=== PATIENT | female | born 1995 | race Two or more races ===

== ENCOUNTER 2019-07-07 16:43 | Emergency (ER) | payer OTHER ==
[~2019-07-07] VITALS: Ht 157.5 cm; Wt 65.1 kg
[2019-07-07 16:46] VITALS: BP 123/82
--- NOTE | 2019-07-07 17:11 | NUR ---
PT HERE WITH C/O "ABDOMINAL CRAMPS" PT STATES THIS STARTED THIS AM. PT DENIES N/V/D. PT STATES CRAMPS ARE ALL OVER THE PLACE. PT DENIES URINARY SYMPTOMS. PT AMBULATED TO BR WITH STEADY GAIT. UA COLLECTED AND SENT TO LAB
[2019-07-07] MEDS ORDERED: DICYCLOMINE 10 MG/ML, 2ML ONE (17:41)
[2019-07-07] MEDS ORDERED: DICYCLOMINE 10 MG/ML, 2ML IM ONE ×2 (18:00→18:30)
[2019-07-07] MEDS ORDERED: PLEASE ENTER ALLERGIES MC SCH (18:00)
[2019-07-07 18:06] LABS: CHLORIDE 107 mmol/L (98-107)
[2019-07-07 18:20] LABS: ALANINE AMINOTRANSFERASE 27 U/L (12-78); ALBUMIN 3.8 g/dL (3.4-5.0); ALKALINE PHOSPHATASE 43 U/L (45-117); ANION GAP 4 mmol/L (5-15); BILIRUBIN,TOTAL 0.3 mg/dL (0.2-1.0); CALCIUM 8.3 mg/dL (8.5-10.1); CREATININE 0.89 mg/dL (0.55-1.02)
--- NOTE | 2019-07-07 18:50 | NUR ---
REPORT RECEIVED FORM STUART REYES. PLAN OF CARE DISCUSSED.
--- NOTE | 2019-07-07 19:33 | NUR ---
Patient/Caregiver given discharge instructions and they have confirmed that they understand the instructions. Patient ambulatory with steady gait.
== END 2019-07-07 19:42 | disposition home or self-care (01) ==
LOC: ED 19:00
DX: R10.84 Generalized abdominal pain (principal); M79.10 Myalgia, unspecified site; R19.7 Diarrhea, unspecified
CPT/HCPCS: 36415; 80053; 96372; 99283; J0500